=== PATIENT | male | born 1975 | race Two or more races ===

== ENCOUNTER 2019-10-28 18:52 | Emergency (ER) | payer SELFPAY ==
[~2019-10-28] VITALS: Ht 167.6 cm; Wt 65.8 kg
[2019-10-28 19:37] VITALS: BP 128/84
== END 2019-10-28 19:54 | disposition home or self-care (01) ==
LOC: ER 18:58
DX: R07.89 Other chest pain (principal); Z02.89 Encounter for other administrative examinations; V43.52XA Car driver injured in collision with other type car in traffic accident, initial encounter; Y93.89 Activity, other specified; Y99.8 Other external cause status; Y92.410 Unspecified street and highway as the place of occurrence of the external cause
CPT/HCPCS: 93005